=== PATIENT | male | born 1950 | race Caucasian/White ===

== ENCOUNTER 2018-06-07 13:47 | Emergency (ER) | payer MEDICARE, OTHER ==
--- NOTE | 2018-06-07 14:41 | CT ---
Head wo Cont CLINICAL HISTORY: Seizures COMPARISON: None TECHNIQUE: Transverse scans were obtained from the base of the skull through the vertex without IV co ntrast on a multislice, multidetector CT scanner. Auto dosage reduction and iterative reconstruction techniques employed. FINDINGS: No focal abnormal parenchymal density is identified. There is no mass effect, hemorrhage, o r extraaxial collection. The basal cisterns and sulci over the convexities are normal. The ventricles are normal for age. There is some sclerosis in the left mastoid air cells likely related to remote the mastoiditis. 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
--- NOTE | 2018-06-07 15:31 | EDM.PDOC ---
ED HPI GENERAL MEDICAL PROBLEM - General Chief Complaint: Neurological Problem Stated Complaint: [facility] Time Seen by Provider: 06/07/18 13:54 Source of Information: Reports: Patient History Limitations: Reports: No Limitations - History of Present Illness INITIAL COMMENTS - FREE TEXT/NARRATIVE: 68 yo male presents to ER via ambulance post seizure. Seizure lasted less then 1 minute with short post dictal state. He had 1 seizure previous in life 20 years ago. Was seen by neurology and no indication was found for the seizure at that time. He mowed the lawn this AM. He was sitting to put his shoes on when he seized. on arrive he currently complains of mild bilateral leg pain. He is from [place] and will be returning tomorrow - Related Data Allergies Allergy/AdvReac Type Severity Reaction Status Date / Time bacitracin Allergy Rash Verified 06/07/18 13:49 [From Neosporin ([id number])] neomycin Allergy Rash Verified 06/07/18 13:49 [From Neosporin ([id number])] polymyxin B Allergy Rash Verified 06/07/18 13:49 [From Neosporin ([id number])] Home Meds: Home Meds Aspirin 81 mg PO DAILY 06/07/18 [History] Omeprazole 20 mg PO DAILY 06/07/18 [History] Testosterone [Androgel] 1.62 mg TOP ASDIRECTED 06/07/18 [History] Past Medical History HEENT History: Reports: Impaired Vision Cardiovascular History: Reports: High Cholesterol Neurological History: Reports: Seizure Oncologic (Cancer) History: Reports: Bladder - Past Surgical History GI Surgical History: Reports: Appendectomy Social & Family History - Tobacco Use Smoking Status *Q: Never Smoker - Caffeine Use Caffeine Use: Reports: Coffee - Recreational Drug Use Recreational Drug Use: No ED ROS GENERAL - Review of Systems Review Of Systems: See Below Constitutional: Denies: Fever, Chills Respiratory: Denies: Shortness of Breath, Wheezing Cardiovascular: Denies: Chest Pain - Physical Exam Exam: See Below Exam Limited By: No Limitations General Appearance: Alert, WD/WN, No Apparent Distress Head Exam: Atraumatic, Normocephalic Respiratory/Chest: No Respiratory Distress, Lungs Clear, Normal Breath Sounds, No Accessory Muscle Use, Chest Non-Tender. No: Crackles, Rhonchi, Wheezing Cardiovascular: Normal Peripheral Pulses, Regular Rate, Rhythm, No Edema, No Murmur GI/Abdominal: Normal Bowel Sounds, Soft, Non-Tender Neuro Exam (Abbreviated): Alert, Oriented, CN II-XII Intact, Normal Cognition, Normal Gait, Normal Reflexes, No Motor/Sensory Deficits Back Exam: Normal Inspection, Full Range of Motion Psychiatric: Normal Affect, Normal Mood Skin Exam: Warm, Dry, Intact, Normal Color, No Rash Course - Vital Signs Last Recorded V/S: Last Vital Signs Temp 35.5 C 06/07/18 13:52 Pulse 78 06/07/18 13:52 Resp 18 06/07/18 13:52 BP 116/63 06/07/18 15:04 Pulse Ox 92 L 06/07/18 13:52 - Orders/Labs/Meds Labs: Laboratory Tests 06/07/18 06/07/18 Range/Units 14:42 14:42 WBC 8.8 (4.5-11.0) K/uL RBC 5.19 (4.30-5.90) M/uL Hgb 16.0 H (12.0-15.0) g/dL Hct 46.4 (40.0-54.0) % MCV 89 (80-98) fL MCH 31 (27-31) pg MCHC 35 (32-36) % Plt Count 192 (150-400) K/uL Neut % (Auto) 78 H (36-66) % Lymph % (Auto) 11 L (24-44) % [place] % (Auto) 11 H (2-6) % Eos % (Auto) 0 L (2-4) % Baso % (Auto) 0 (0-1) % Sodium 138 L (140-148) mmol/L Potassium 4.0 (3.6-5.2) mmol/L Chloride 102 (100-108) mmol/L Carbon Dioxide 27 (21-32) mmol/L Anion Gap 13.0 (5.0-14.0) mmol/L BUN 25 H (7-18) mg/dL Creatinine 1.6 H (0.8-1.3) mg/dL Est Cr Clr Drug Dosing 52.08 mL/min Estimated GFR (MDRD) 43 L (>60) Glucose 116 H (74-106) mg/dL Calcium 9.8 (8.5-10.1) mg/dL Departure - Departure Time of Disposition: 15:27 Disposition: Home, Self-Care 01 Condition: Good Clinical Impression: Seizure - Discharge Information *PRESCRIPTION DRUG MONITORING PROGRAM REVIEWED*: Not Applicable *COPY OF PRESCRIPTION DRUG MONITORING REPORT IN PATIENT KAREN: Not Applicable Instructions: Seizure, Adult, [id number] Referrals: PCP,None [Primary Care Provider] - Forms: ED Department Discharge Additional Instructions: on return home follow-up with primary care provider I have sent your labs and head CT with your to give to your primary care you are slightly dehydrated I encourage 1.5 Liters today, Please have your kidney function rechecked when you follow-up with your primary care no driving until you are seen in follow-up
== END 2018-06-07 15:39 | disposition home or self-care (01) ==
LOC: JP.ED 13:47
DX: R56.9 Unspecified convulsions (principal); E78.00 Pure hypercholesterolemia, unspecified; Z88.1 Allergy status to other antibiotic agents; Z88.8 Allergy status to other drugs, medicaments and biological substances; Z79.82 Long term (current) use of aspirin; Z79.899 Other long term (current) drug therapy
CPT/HCPCS: 36415; 70450; 70450-26; 80048; 85025; 99285-25

== ENCOUNTER 2022-03-20 08:01 | Emergency (ER) | payer MEDICARE, OTHER ==
[2022-03-20] MEDS ORDERED: Lidocaine 1% 5 ML VIAL INJECT ONE (08:39)
[2022-03-20] MEDS ORDERED: Diphtheria,Pertussis(Acell),Tetanus Vaccine 0.5 ML Syringe IM ONE (09:08)
== END 2022-03-20 09:36 | disposition home or self-care (01) ==
LOC: JP.ED 08:01
DX: S01.21XA Laceration without foreign body of nose, initial encounter (principal); S00.81XA Abrasion of other part of head, initial encounter; S80.211A Abrasion, right knee, initial encounter; Z90.49 Acquired absence of other specified parts of digestive tract; Z23 Encounter for immunization; Z88.6 Allergy status to analgesic agent; Z88.1 Allergy status to other antibiotic agents; W20.8XXA Other cause of strike by thrown, projected or falling object, initial encounter
CPT/HCPCS: 12001; 12011; 90471; 90715; 99281; 99283-25